=== PATIENT | male | born 1955 | race Caucasian/White ===

== ENCOUNTER → 2016-09-18 | Outpatient (REF) | payer BC | LOC: M LAB REF 17:42 | PROVIDERS: ATTEND Nurse Practitioner Adult Health | DX: E29.1 Testicular hypofunction (principal) ==

== ENCOUNTER → 2017-08-13 | Outpatient (CLI) | payer BC ==
[~2017-08-13] MED LIST: PROHANCE 279.3MG/ML 15ML VIAL (A9576) As Ordered; PROHANCE 279.3MG/ML 5ML VIAL (A9576) As Ordered
== END ==
LOC: M RAD 15:12
DX: H90.3 Sensorineural hearing loss, bilateral (principal)
CPT/HCPCS: A9576

== ENCOUNTER → 2017-09-25 | Outpatient (REF) | payer BC ==
[2017-09-27 00:06] LABS: TESTOSTERONE FREE (DIRECT) 3.1 pg/mL (6.6-18.1)
== END ==
LOC: M LAB REF 11:52
DX: E29.1 Testicular hypofunction (principal)
CPT/HCPCS: 84403

== ENCOUNTER 2017-11-19 09:44 | Day surgery (SDC) | payer BC ==
[2017-11-19] MEDS: NS 1,000 ML IV (08:00)
[2017-11-19] MEDS ORDERED: LIDOCAINE 2% INJ 100 MG/5 ML SDV (FOR ANES.) As Ordered (11:16)
[2017-11-19] MEDS ORDERED: PROPOFOL 200 MG/20 ML VIAL As Ordered ×2 (11:16)
[2017-11-19] MEDS ORDERED: fentaNYL 100 MCG/2 ML INJECTION (J3010) As Ordered (11:17)
== END 2017-11-19 12:28 | disposition home or self-care (01) ==
LOC: M OPP 09:44
DX: Z12.11 Encounter for screening for malignant neoplasm of colon (principal); Z86.010 Personal history of colon polyps; K62.1 Rectal polyp; K64.0 First degree hemorrhoids; R12 Heartburn; R68.81 Early satiety; K22.8 Other specified diseases of esophagus; E03.9 Hypothyroidism, unspecified; K21.9 Gastro-esophageal reflux disease without esophagitis; M19.90 Unspecified osteoarthritis, unspecified site; R06.83 Snoring; Z87.09 Personal history of other diseases of the respiratory system; F17.210 Nicotine dependence, cigarettes, uncomplicated; Z79.899 Other long term (current) drug therapy; Z80.7 Family history of other malignant neoplasms of lymphoid, hematopoietic and related tissues; Z80.1 Family history of malignant neoplasm of trachea, bronchus and lung
CPT/HCPCS: 45380

== ENCOUNTER → 2018-12-05 | Outpatient (REF) | payer BC, MEDICARE, SELFPAY ==
[~2018-12-05] MED LIST changes: +LEVO88TA3 PO; +OMEP20CA4 PO; -PROHANCE 279.3MG/ML 15ML VIAL (A9576) As Ordered; -PROHANCE 279.3MG/ML 5ML VIAL (A9576) As Ordered; +ROSU40TA4 PO
== END ==
LOC: M LAB REF 17:30
PROVIDERS: ATTEND Nurse Practitioner Adult Health
DX: E29.1 Testicular hypofunction (principal)

== ENCOUNTER → 2019-03-07 | Outpatient (REF) | payer MEDICARE ==
[~2019-03-07] MED LIST changes: +OMEP1CAP73 PO; -OMEP20CA4 PO
== END ==
LOC: M LAB REF 11:47
PROVIDERS: ATTEND Internal Medicine
DX: E29.1 Testicular hypofunction (principal)

== ENCOUNTER → 2019-06-13 | Outpatient (REF) | payer MEDICARE | LOC: M LAB REF 12:14 | PROVIDERS: ATTEND Nurse Practitioner Adult Health | DX: E29.1 Testicular hypofunction (principal) ==

== ENCOUNTER → 2019-09-04 | Outpatient (REF) | payer MEDICARE | LOC: M LAB REF 12:24 | PROVIDERS: ATTEND Nurse Practitioner Adult Health | DX: E29.1 Testicular hypofunction (principal) ==

== ENCOUNTER → 2019-10-14 | Outpatient (CLI) | payer MEDICARE | LOC: M RAD 08:15 | PROVIDERS: ATTEND Podiatrist Foot & Ankle Surgery | DX: I82.432 Acute embolism and thrombosis of left popliteal vein (principal); R60.9 Edema, unspecified; I86.8 Varicose veins of other specified sites ==

== ENCOUNTER → 2019-11-19 | Outpatient (CLI) | payer MEDICARE ==
--- NOTE | 2019-11-27 17:51 | REP ---
BILATERAL LOWER EXTREMITY DUPLEX ARTERIAL ULTRASOUND HISTORY: Intermittent claudication bilateral legs. Atherosclerosis. DOPPLER SONOGRAPHIC FINDINGS: Ankle brachial indices could not be accomplished due to noncompressible vessels. Relatively normal triphasic and biphasic waveforms are noted throughout the lower extremities bilaterally. No high-grade stenosis is seen on either side. VELOCITY CHART BILATERAL LOWER EXTREMITIES RIGHT (cm/s) LEFT (cm/s) SPECTROSCOPIST 127 94 Profunda 83 62 Proximal SFA 130 111 Mid SFA 116 110 Distal SFA 107 119 Popliteal 54 72 Proximal BLOSSOM 68 65 Tibioperoneal trunk 57 59 Proximal HOSPITAL WARD CLERK 42 42 Distal HOSPITAL WARD CLERK 68 83 Distal BLOSSOM 82 87 MTDD
== END ==
LOC: M RAD 10:00
PROVIDERS: ATTEND Physician Assistant
DX: I70.213 Atherosclerosis of native arteries of extremities with intermittent claudication, bilateral legs (principal)

== ENCOUNTER → 2019-12-08 | Outpatient (REF) | payer MEDICARE ==
[2019-12-09 18:07] LABS: TESTOSTERONE FREE (DIRECT) 14.4 pg/mL (6.6-18.1)
== END ==
LOC: M LAB REF 12:14
PROVIDERS: ATTEND Nurse Practitioner Adult Health
DX: E29.1 Testicular hypofunction (principal)

== ENCOUNTER → 2020-03-01 | Outpatient (CLI) | payer MEDICARE ==
--- NOTE | 2020-03-01 08:33 | REP ---
INDICATION: HX OF VENOUS THROMBOSIS AND EMBOLISM COMPARISON: 11/19/2019 TECHNIQUE: Castellanos scale and color Doppler evaluation of the bilateral lower extremities using linear high frequency transducer. FINDINGS: Right lower extremity is normal in appearance and flow characteristics from the common femoral vein to the popliteal vein without evidence for deep venous thrombosis. Left lower extremity demonstrates small nonocclusive material at the popliteal vein likely representing chronic changes and no evidence for acute occlusive thrombus. IMPRESSION: 1. No evidence for acute occlusive thrombus. 2. Small amount of residual chronic changes suggested in the left popliteal vein. <Electronically signed by Prince Haas > 03/01/20 [id number]
== END ==
LOC: M RAD 07:50
PROVIDERS: ATTEND Physician Assistant
DX: Z86.718 Personal history of other venous thrombosis and embolism (principal)

== ENCOUNTER → 2020-03-19 | Outpatient (REF) | payer MEDICARE ==
[2020-03-19 10:52] LABS: H PYLORI QUALITATIVE IgG NEGATIVE (NEGATIVE)
== END ==
LOC: M LAB REF 10:08
PROVIDERS: ATTEND Nurse Practitioner Adult Health
DX: R10.11 Right upper quadrant pain (principal)

== ENCOUNTER → 2020-06-04 | Outpatient (CLI) | payer MEDICARE ==
[~2020-06-04] MED LIST changes: +ASPI81CH33 PO; +LEVO112T2 PO; +LISI10TA15 PO; +OMEP-218 PO; +TEST200I14 SC
== END ==
LOC: M LABSMTC 12:06
PROVIDERS: ATTEND Anesthesiology
DX: Z01.812 Encounter for preprocedural laboratory examination (principal); Z20.828 Contact with and (suspected) exposure to other viral communicable diseases

== ENCOUNTER 2020-06-09 07:05 | Day surgery (SDC) | payer MEDICARE ==
[~2020-06-09] VITALS: Ht 182.9 cm; Wt 121.6 kg
[~2020-06-09 07:05] MED LIST changes: +NS 1,000 ML IV ONE
[2020-06-09] MEDS ORDERED: fentaNYL 100 MCG/2 ML INJECTION (J3010) As Ordered ONE (07:07)
[2020-06-09] MEDS ORDERED: LIDOCAINE 2% 100MG/5ML SDV (FOR ANES.) As Ordered ONE (07:07)
[2020-06-09] MEDS ORDERED: propofoL 200 MG/20 ML VIAL As Ordered ONE (07:11)
--- NOTE | 2020-06-09 08:21 | ROOR ---
Patient Name: Rich Mascorro Procedure Date: 06/09/2020 8:04 AM Date of : 1955 Age: 64 Room: [facility] Gender: Male Note Status: Finalized Procedure: Upper Endoscopy + Biopsies Indications: Epigastric abdominal pain, Abdominal bloating, Dyspepsia Providers: Maikel Campos MD Referring MD: Kaye Rose NP Requesting Provider: Medicines: Monitored Anesthesia Care Complications: No immediate complications. Procedure: Pre-Anesthesia Assessment: - The heart rate, respiratory rate, oxygen saturations, blood pressure, adequacy of pulmonary ventilation, and response to care were monitored throughout the procedure. The Endoscope was introduced through the mouth, and advanced to the second part of duodenum. The upper GI endoscopy was accomplished without difficulty. The patient tolerated the procedure well. Findings: The Z-line was regular and was found 50 cm from the incisors. Localized mild inflammation characterized by congestion (edema) and erythema was found in the prepyloric region of the stomach. Biopsies were taken with a cold forceps for Helicobacter pylori testing. The exam was otherwise without abnormality. Impression: - Z-line regular, 50 cm from the incisors. - Mucosal changes suspicious for gastritis. Biopsied. - The examination was otherwise normal. Recommendation: - Patient has a contact number available for emergencies. The signs and symptoms of potential delayed complications were discussed with the patient. Return to normal activities tomorrow. Written discharge instructions were provided to the patient. - Resume previous diet. - Discharge patient to home. - Continue present medications. - Await pathology results. - Telephone GI clinic for pathology results in 1 week. - Return to referring physician. - The findings and recommendations were discussed with the patient. Procedure Code(s): --- Professional --- 84419, Esophagogastroduodenoscopy, flexible, transoral; with biopsy, single or multiple Diagnosis Code(s): --- Professional --- K31.89, Other diseases of stomach and duodenum R10.13, Epigastric pain R14.0, Abdominal distension (gaseous) CPT copyright 2019 [employer]. All rights reserved. The codes documented in this report are preliminary and upon supervisor shrimp [place] review may be revised to meet current compliance requirements. Maikel Campos MD Maikel Campos MD 06/09/2020 8:21:16 AM Electronically signed by Maikel Campos MD Number of Addenda: 0 Note Initiated On: 06/09/2020 8:04 AM Estimated Blood Loss: Estimated blood loss: none.
[2020-06-09 08:50] VITALS: BP 169/89
== END 2020-06-09 09:30 | disposition home or self-care (01) ==
LOC: M OPP 07:05
PROVIDERS: ATTEND Internal Medicine Gastroenterology
DX: K31.89 Other diseases of stomach and duodenum (principal); R10.13 Epigastric pain; R14.0 Abdominal distension (gaseous); K21.9 Gastro-esophageal reflux disease without esophagitis; E03.9 Hypothyroidism, unspecified; F17.210 Nicotine dependence, cigarettes, uncomplicated; Z79.82 Long term (current) use of aspirin; Z79.899 Other long term (current) drug therapy
CPT/HCPCS: 43239; 88305; J3010

== ENCOUNTER → 2020-06-16 | Outpatient (CLI) | payer MEDICARE ==
[~2020-06-16] MED LIST changes: -NS 1,000 ML IV ONE
--- NOTE | 2020-06-17 08:00 | REP ---
INDICATION: RUQ QUAD ABD PAIN. COMPARISON: Comparison CT study March 11, 2020.. TECHNIQUE/RADIOTRACER AND DOSE: 6.6 mCi of Technetium-99m mebrofenin was injected and sequential anterior images are acquired. 65 minutes after the mebrofenin injection, the patient consumed 8 ounces Ensure and an additional 60 minutes of imaging was acquired. Regions of interest are plotted around the gallbladder. FINDINGS: The initial hepatocellular parenchymal uptake phase is normal and homogeneous. Intra- and extra-hepatic bile ducts are labeled by the 10-minute image. The gallbladder is first labeled on the 10-minute image. There is normal washout from the liver parenchyma into the gallbladder and small intestine on subsequent images. The gallbladder ejection fraction is 90%. Values greater than 35% are considered normal with this technique. IMPRESSION: Normal hepatobiliary scan and normal gallbladder ejection fraction. <Electronically signed by Curt Francis > 06/17/20 [id number]
== END ==
LOC: M RAD 12:10
PROVIDERS: ATTEND Internal Medicine Gastroenterology
DX: R10.11 Right upper quadrant pain (principal)
CPT/HCPCS: 78227; A9537

== ENCOUNTER → 2020-08-18 | Outpatient (REF) | payer MEDICARE ==
[2020-08-19 17:08] LABS: TESTOSTERONE FREE (DIRECT) 12.2 pg/mL (6.6-18.1)
== END ==
LOC: M LAB REF 12:40
PROVIDERS: ATTEND Nurse Practitioner Adult Health
DX: E29.1 Testicular hypofunction (principal)

== ENCOUNTER → 2020-09-07 | Outpatient (CLI) | payer MEDICARE ==
[~2020-09-07] MED LIST changes: -LISI10TA15 PO; +LISI10TA24 PO; +OMEP-173 PO; -OMEP-218 PO
== END ==
LOC: M RAD 12:23
PROVIDERS: ATTEND Nurse Practitioner Adult Health
DX: R10.13 Epigastric pain (principal)
CPT/HCPCS: 78264; A9541

== ENCOUNTER → 2021-02-16 | Outpatient (CLI) | payer MEDICARE ==
[~2021-02-16] MED LIST changes: +LISI10TA15 PO; -LISI10TA24 PO; -OMEP-173 PO; +OMEP-218 PO
--- NOTE | 2021-02-16 12:17 | REP ---
INDICATION: RIGHT SIDE PAIN COMPARISON: None. TECHNIQUE: AP, lateral, and swimmers views. FINDINGS: Age-related osteopenia and degenerative changes include mild endplate sclerosis with minimal disc space narrowing and marginal, primarily right-sided osteophytosis. Alignment and kyphosis maintained. No acute fracture/compression injury or subluxation. IMPRESSION: Osteopenia and generalized age-related changes. <Electronically signed by Prince Haas > 02/16/21 [id number]
[2021-02-18 16:08] LABS: TESTOSTERONE FREE (DIRECT) 2.4 pg/mL (6.6-18.1)
== END ==
LOC: M WUC 10:10
PROVIDERS: ATTEND Nurse Practitioner Adult Health
DX: E29.1 Testicular hypofunction (principal); M51.34 Other intervertebral disc degeneration, thoracic region; M85.88 Other specified disorders of bone density and structure, other site

== ENCOUNTER → 2021-05-16 | Outpatient (CLI) | payer MEDICARE ==
[~2021-05-16] MED LIST changes: -LISI10TA15 PO; +LISI10TA24 PO; +OMEP-173 PO; -OMEP-218 PO
== END ==
LOC: M RAD 11:01
PROVIDERS: ATTEND Nurse Practitioner Family
DX: M51.16 Intervertebral disc disorders with radiculopathy, lumbar region (principal)

== ENCOUNTER → 2021-06-13 | Outpatient (REF) | payer MEDICARE ==
[2021-06-14 23:07] LABS: TESTOSTERONE FREE (DIRECT) 9.3 pg/mL (6.6-18.1)
== END ==
LOC: M LAB REF 11:41
PROVIDERS: ATTEND Nurse Practitioner Adult Health
DX: E29.1 Testicular hypofunction (principal)

== ENCOUNTER → 2021-12-02 | Outpatient (CLI) | payer MEDICARE | LOC: M PLARAD 08:56 | PROVIDERS: ATTEND Nurse Practitioner Family | DX: M54.16 Radiculopathy, lumbar region (principal) ==

== ENCOUNTER → 2022-05-02 | Outpatient (REF) | payer MEDICARE | LOC: M LAB REF 12:04 | PROVIDERS: ATTEND Nurse Practitioner Adult Health | DX: E78.00 Pure hypercholesterolemia, unspecified (principal) ==

== ENCOUNTER → 2023-01-23 | Outpatient (REF) | payer MEDICARE | LOC: M LAB REF 17:54 | PROVIDERS: ATTEND Nurse Practitioner Adult Health | DX: E78.00 Pure hypercholesterolemia, unspecified (principal) ==

== ENCOUNTER 2023-05-28 06:35 | Day surgery (SDC) | payer MEDICARE ==
[~2023-05-28] VITALS: Ht 182.9 cm; Wt 127.6 kg
[~2023-05-28 06:35] MED LIST changes: +METO1TAB87 PO
[2023-05-28] MEDS ORDERED: SIMETHICONE 40MG/0.6ML DROPS 30ML As Ordered ONE (06:46)
[2023-05-28] MEDS: NS 1,000 ML IV ONE (07:04)
[2023-05-28] MEDS ORDERED: propofoL 500 MG/50 ML VIAL As Ordered ONE (07:43)
[2023-05-28 07:54] VITALS: TEMP 97.6
[2023-05-28 08:06] VITALS: BP 160/70; O2SAT 96
== END 2023-05-28 08:12 | disposition home or self-care (01) ==
LOC: M OPP 06:35
PROVIDERS: ATTEND Internal Medicine Gastroenterology
DX: Z86.010 Personal history of colon polyps (principal); K64.0 First degree hemorrhoids; K57.30 Diverticulosis of large intestine without perforation or abscess without bleeding; K31.89 Other diseases of stomach and duodenum; K22.89 Other specified disease of esophagus; K44.9 Diaphragmatic hernia without obstruction or gangrene; R12 Heartburn; F17.200 Nicotine dependence, unspecified, uncomplicated
CPT/HCPCS: 43239; 88305; G0105

== ENCOUNTER → 2024-04-11 | Outpatient (CLI) | payer MEDICARE ==
[~2024-04-11] MED LIST changes: -ROSU40TA4 PO; +ROSU40TA81 PO
== END ==
LOC: M RAD 13:56
PROVIDERS: ATTEND Nurse Practitioner Adult Health
DX: Z12.2 Encounter for screening for malignant neoplasm of respiratory organs (principal); F17.210 Nicotine dependence, cigarettes, uncomplicated; J98.11 Atelectasis; R91.1 Solitary pulmonary nodule; I70.0 Atherosclerosis of aorta; I77.810 Thoracic aortic ectasia

== ENCOUNTER → 2025-01-27 | Outpatient (REF) | payer MEDICARE ==
[2025-01-29 07:32] LABS: LDL DIRECT 49 mg/dL (<100)
== END ==
LOC: M LAB REF 13:50
PROVIDERS: ATTEND Nurse Practitioner Adult Health
DX: E78.00 Pure hypercholesterolemia, unspecified (principal)